=== PATIENT | male | born 1975 | race Caucasian/White ===

== ENCOUNTER 2019-04-09 21:30 | Emergency (ER) | payer OTHER ==
[~2019-04-09] VITALS: Ht 182.9 cm; Wt 103.4 kg
[~2019-04-09 21:30] MED LIST: ALLERGY PILL; CEPH500 PO; HYDACE5 PO; KETO10 PO; OXYACE5T PO; PROM25 PO; RXOXYACE PO; SULTRIDS PO; TAMS.4ER PO; Zofran Odt4 MG PO
[2019-04-09] MEDS ORDERED: LISI20 (21:43)
[2019-04-09] MEDS ORDERED: IBUP400 PO (21:44)
[2019-04-09] MEDS ORDERED: Augmentin 875-1 EACH PO (21:48)
== END 2019-04-09 22:07 | disposition home or self-care (01) ==
LOC: ER 21:30
DX: K04.7 Periapical abscess without sinus (principal); Z79.899 Other long term (current) drug therapy; Z87.442 Personal history of urinary calculi; Z87.891 Personal history of nicotine dependence
CPT/HCPCS: 99282

== ENCOUNTER 2019-08-23 21:53 | Emergency (ER) | payer OTHER ==
[~2019-08-23] VITALS: Ht 182.9 cm; Wt 104.3 kg
[~2019-08-23 21:53] MED LIST changes: +Augmentin 875-1 EACH PO; +IBUP400 PO; +LISI20
[2019-08-23] MEDS ORDERED: Bactrim Ds Tab1 EACH PO (23:29)
[2019-08-23] MEDS ORDERED: CEPH500 PO (23:29)
== END 2019-08-23 23:50 | disposition home or self-care (01) ==
LOC: ER 21:53
DX: L02.31 Cutaneous abscess of buttock (principal); I10 Essential (primary) hypertension; Z79.899 Other long term (current) drug therapy; Z87.891 Personal history of nicotine dependence
CPT/HCPCS: 10061; 99283-25; A9270-GY

== ENCOUNTER → 2019-08-31 | Outpatient (CLI) | payer OTHER ==
[~2019-08-31] MED LIST changes: +Bactrim Ds Tab1 EACH PO
== END | disposition home or self-care (01) ==
LOC: LAB EV 13:48 → LAB SHORT 13:48
DX: L02.91 Cutaneous abscess, unspecified (principal)
CPT/HCPCS: 87070; 87075; 87077; 87186; 87205

== ENCOUNTER 2021-04-22 09:50 | Day surgery (SDC) | payer OTHER ==
[~2021-04-22] VITALS: Ht 180.3 cm; Wt 117.1 kg
[~2021-04-22 09:50] MED LIST changes: +ASPI81CH PO; +ATOR40TA PO; +FURO40 PO; +IRON PO; +LOSA50 PO; +POTCHL20ER PO
--- NOTE | 2021-04-22 12:20 | NUR ---
04/22/21 1220 Elizabeth Leon History, Chart, Medications and Allergies reviewed before start of procedure.MONITOR INTACT WITH CONTINUOUS PULSE OXIMETRY AND INTERMITTENT BP.3-LEAD EKG REVIEWED WITH PHYSICIAN PRIOR TO START OF PROCEDURE.O2 VIA N/C INTACT THROUGHOUT SEDATION/PROCEDURE. MODERATE SEDATION PER DR CRAWFORD
--- NOTE | 2021-04-22 14:13 | NUR ---
DISCHARGED WITH ALL BELONGINGS ANED DISCHARGE INSTRUCTIONS
== END 2021-04-22 23:14 | disposition home or self-care (01) ==
LOC: ORSCMMR 09:50 → ORD 05-05 09:30 → ORSCMMR 05-05 09:30
PROVIDERS: Internal Medicine Gastroenterology
PROC: 0DB98ZX Excision of Duodenum, Via Natural or Artificial Opening Endoscopic, Diagnostic (ICD-10-PCS; principal; 2021-04-22 11:00)
PROC: 0DBN8ZX Excision of Sigmoid Colon, Via Natural or Artificial Opening Endoscopic, Diagnostic (ICD-10-PCS; principal; 2021-04-22 11:00)
PROC: 0DB68ZX Excision of Stomach, Via Natural or Artificial Opening Endoscopic, Diagnostic (ICD-10-PCS; principal; 2021-04-22 11:00)
DX: D62 Acute posthemorrhagic anemia (principal); K62.5 Hemorrhage of anus and rectum; K63.5 Polyp of colon; K29.70 Gastritis, unspecified, without bleeding; K64.8 Other hemorrhoids; K57.30 Diverticulosis of large intestine without perforation or abscess without bleeding
CPT/HCPCS: 82947; 88305; 88342; A9270; J2250; J3010; J7120

== ENCOUNTER → 2021-04-23 | Outpatient (CLI) | payer OTHER ==
[2021-04-23 19:57] LABS: Anion Gap 7 mmol/L (6-16); Blood Urea Nitrogen 10 mg/dL (8-24); Bun/Creatinine Ratio 10.3 (12.0-20.0); CO2, Blood 25 mmol/L (21-32); Calcium, Blood 9.1 mg/dL (8.5-10.1); Chloride, Blood 109 mmol/L (98-108); Creatinine, Blood 0.97 mg/dL (0.60-1.20); Glomerular Filtration Rate >60 (60-); Glucose, Blood 103 mg/dL (70-99); Potassium, Blood 3.9 mmol/L (3.5-5.5); Sodium, Blood 141 mmol/L (136-145)
== END | disposition home or self-care (01) ==
LOC: LAB SHORT 18:53 → LAB 18:53
PROVIDERS: Family Medicine
DX: R60.9 Edema, unspecified (principal)
CPT/HCPCS: 80048